=== PATIENT | female | born 1945 | race Caucasian/White ===

== ENCOUNTER → 2017-05-21 | Outpatient (CLI) | payer MEDICARE ==
--- NOTE | 2017-05-21 17:28 | US ---
EXAMINATION TYPE: US venous doppler duplex LE LT DATE OF EXAM: 05/21/2017 5:23 PM COMPARISON: NONE CLINICAL HISTORY: R60.6 Localized edema left lower extremity. Left ankle swelling x 5 days. SIDE PERFORMED: Left TECHNIQUE: The lower extremity deep venous system is examined utilizing real time linear array sonog agata with graded compression, doppler sonography and color-flow sonography. VESSELS IMAGED: External Iliac Vein (EIV) Common Femoral Vein Deep Femoral Vein Greater Saphenous Vein * Femoral Vein Popliteal Vein Small Saphenous Vein * Proximal Calf Veins (* superficial vessels) Left Leg: Negative for DVT IMPRESSION: Negative exam. No evidence of deep venous thrombosis in the left leg.
== END | disposition home or self-care (01) ==
LOC: RADUSMAIN 16:31
PROVIDERS: ATTEND Physical Medicine & Rehabilitation
DX: I80.9 Phlebitis and thrombophlebitis of unspecified site (principal); M51.17 Intervertebral disc disorders with radiculopathy, lumbosacral region; M47.817 Spondylosis without myelopathy or radiculopathy, lumbosacral region; M70.62 Trochanteric bursitis, left hip; M79.1 Myalgia; R60.0 Localized edema

== ENCOUNTER → 2018-04-15 | Outpatient (CLI) | payer MEDICARE ==
--- NOTE | 2018-04-18 14:25 | MM ---
Reason for exam: screening (asymptomatic). Last mammogram was performed 2 years and 5 months ago. History: Patient is postmenopausal. Family history of premenopausal breast cancer in sister at age 45. Benign stereotactic core biopsy of the left breast, July 08, 1999. Took hormonal contraceptives for 15 years beginning at age 20. Physical Findings: A clinical breast exam by your physician is recommended on an annual basis and results should be correlated with mammographic findings. MG 3D Screening Mammo W/Cad Bilateral CC and MLO view(s) were taken. Prior study comparison: November 11, 2015, right breast MG 3d work up w/cad RT. October 31, 2015, bilateral MG screening mammo w CAD. There are scattered fibroglandular densities. Finding: There are typically benign round calcifications in both breasts. Previous mammotome biopsy in the left breast. There is no discrete abnormality. ASSESSMENT: Benign, BI-RAD 2 RECOMMENDATION: Routine screening mammogram of both breasts in 1 year.
== END | disposition home or self-care (01) ==
LOC: RADMAMWWP 14:39
PROVIDERS: ATTEND Obstetrics & Gynecology
DX: Z12.31 Encounter for screening mammogram for malignant neoplasm of breast (principal); Z80.3 Family history of malignant neoplasm of breast
CPT/HCPCS: 77063; 77067

== ENCOUNTER → 2019-10-19 | Outpatient (CLI) | payer MEDICARE ==
--- NOTE | 2019-10-20 11:49 | ECHOF ---
Referral Reason:R01.1 Cardiac murmur on examination MEASUREMENTS -------- HEIGHT: 162.6 cm WEIGHT: 90.7 kg BP: IVSd: 1.1 cm (0.6 - 1.1) LVIDd: 4.1 cm (3.9 - 5.3) LVPWd: 1.3 cm (0.6 - 1.1) IVSs: 1.4 cm LVIDs: 2.9 cm LVPWs: 1.6 cm LAESV Index (A-L): 28.72 ml/m Ao Diam: 2.3 cm (2.0 - 3.7) AV Cusp: 1.5 cm (1.5 - 2.6) LA Diam: 3.9 cm (2.7 - 3.8) MV EXCURSION: 16.312 mm (> 18.000) MV EF SLOPE: 59 mm/s (70 - 150) EPSS: 0.2 cm MV E Rhett: 0.43 m/s MV DecT: 273 ms MV A Rhett: 0.66 m/s MV E/A Ratio: 0.66 RAP: 5.00 mmHg RVSP: 23.24 mmHg FINDINGS -------- Sinus rhythm. This was a technically good study. LV size, wall thickness and systolic function are normal, with an EF greater than 55%. The left prince tricular size is normal. The diastolic filling pattern is normal for the age of the patient 6.33. The right ventricle is normal in size. The left atrial size is normal. The right atrial size is normal. There is mild aortic valve sclerosis. There is no evidence of aortic regurgitation. Mild mitral annular calcification present. Mild mitral regurgitation is present. Mild tricuspid regurgitation present. Right ventricular systolic pressure is normal at < 35 mmHg. There is no evidence of pulmonary hypertension. There is no pulmonic regurgitation present. The aortic root size is normal. There is no pericardial effusion. CONCLUSIONS -------- 1. Sinus rhythm. 2. This was a technically good study. 3. LV size, wall thickness and systolic function are normal, with an EF greater than 55%. 4. The left ventricular size is normal. 5. The diastolic filling pattern is normal for the age of the patient 6.33 6. The right ventricle is normal in size. 7. The left atrial size is normal. 8. The right atrial size is normal. 9. There is mild aortic valve sclerosis. 10. Mild mitral annular calcification present. 11. Mild mitral regurgitation is present. 12. Mild tricuspid regurgitation present. 13. Right ventricular systolic pressure is normal at < 35 mmHg. 14. There is no evidence of pulmonary hypertension. 15. There is no pulmonic regurgitation present. 16. The aortic root size is normal. 17. There is no pericardial effusion. EXTERMINATOR HELPER TERMITE: Idania Mcdonald RDCS
== END | disposition home or self-care (01) ==
LOC: RADECHMAIN 12:51
PROVIDERS: ATTEND Family Medicine
DX: I08.3 Combined rheumatic disorders of mitral, aortic and tricuspid valves (principal)
CPT/HCPCS: 93306

== ENCOUNTER → 2019-12-22 | Outpatient (CLI) | payer MEDICARE ==
--- NOTE | 2019-12-25 13:20 | MM ---
Reason for exam: screening (asymptomatic). Last mammogram was performed 1 year and 8 months ago. History: Patient is postmenopausal. Family history of premenopausal breast cancer in sister at age 45. Benign stereotactic core biopsy of the left breast, July 08, 1999. Took hormonal contraceptives for 15 years beginning at age 20. Physical Findings: A clinical breast exam by your physician is recommended on an annual basis and results should be correlated with mammographic findings. MG 3D Screening Mammo W/Cad Bilateral CC and MLO view(s) were taken. Prior study comparison: April 15, 2018, bilateral MG 3d screening mammo w/cad. November 11, 2015, right breast MG 3d work up w/cad RT. There are scattered fibroglandular densities. There is no discrete abnormality. No significant changes when compared with prior studies. ASSESSMENT: Negative, BI-RAD 1 RECOMMENDATION: Routine screening mammogram of both breasts in 1 year.
== END | disposition home or self-care (01) ==
LOC: RADMAMWWP 14:38
PROVIDERS: ATTEND Obstetrics & Gynecology
DX: Z12.31 Encounter for screening mammogram for malignant neoplasm of breast (principal)
CPT/HCPCS: 77063; 77067

== ENCOUNTER 2021-09-16 10:11 | Outpatient (CLI) | payer MEDICARE ==
[~2021-09-16 10:11] MED LIST: BAMLANIVIMAB (EUA) 700 MG, ETESEVIMAB (EUA) 1,400 MG in SODIUM CHLORIDE 0.9% 50 ML IVPB ONE; SODIUM CHLORIDE 0.9% 50 ML IVPB ONE; SODIUM CHLORIDE 0.9% 500 ML 500 ML in EMPTY BAG 1 BAG IV PRN
[2021-09-16 10:47] VITALS: RESP 16
[2021-09-16 11:51] VITALS: BP 94/63; PULSE 96; TEMP 98.9
== END 2021-09-16 12:20 ==
LOC: PROCWHC3 10:11
PROVIDERS: ATTEND Family Medicine
DX: U07.1 COVID-19 (principal); Z87.891 Personal history of nicotine dependence; Z88.0 Allergy status to penicillin
CPT/HCPCS: 96360; J3490; M0243

== ENCOUNTER → 2021-12-25 | Outpatient (CLI) | payer MEDICARE ==
--- NOTE | 2021-12-25 10:52 | US ---
EXAMINATION TYPE: US kidneys/renal and bladder DATE OF EXAM: 12/25/2021 COMPARISON: NONE CLINICAL HISTORY: 76-year-old female Recurrent UTI N39.0. TECHNIQUE: Multiple sonographic images of the kidneys and bladder are obtained. FINDINGS: EXAM MEASUREMENTS: Right Kidney: 10.8 x 5.2 x 4.4 cm Left Kidney: 9.9 x 5.1 x 4.4 cm Right Kidney: Mild hydronephrosis Left Kidney: No hydronephrosis. Hypoechoic area seen lower pole 1.9 x 1.2 x 1.7 cm somewhat limited d ue to bowel gas. Bladder: Anechoic Bilateral Jets seen: no IMPRESSION: 1. Mild right-sided hydronephrosis. Correlate as to possible etiology. 2. A 1.9 cm round hypoechoic structure at the lower pole of the left kidney could represent a debris- filled cyst or solid mass. Either contrast enhanced CT to further characterize versus 3 month ultraso und follow-up to reassess.
== END | disposition home or self-care (01) ==
LOC: RADUSWWP 07:42
PROVIDERS: ATTEND Obstetrics & Gynecology
DX: N13.30 Unspecified hydronephrosis (principal); N28.89 Other specified disorders of kidney and ureter
CPT/HCPCS: 76770

== ENCOUNTER → 2022-01-02 | Outpatient (CLI) | payer MEDICARE ==
[2022-01-02 13:09] LABS: African American GFR (CKD) >90 (>60 ml/min/1.73 sqM); Blood Urea Nitrogen 23 mg/dL (7-17); Non-African American GFR(CKD) 83 (>60 ml/min/1.73 sqM)
--- NOTE | 2022-01-02 14:41 | CT ---
EXAMINATION TYPE: CT angio chest DATE OF EXAM: 01/02/2022 COMPARISON: HISTORY: Shortness of breath. CT DLP: 555.1 mGycm Automated exposure control for dose reduction was used. CONTRAST: CTA scan of the thorax is performed with IV Contrast, patient injected with 100ml mL of Isovue 370, p ulmonary embolism protocol. MIP images are created and reviewed. 3D reconstructed images are create d on an independent workstation and reviewed. FINDINGS: LUNGS: The lungs are grossly clear, there is no concerning parenchymal mass or nodule identified. M ild basilar atelectasis is noted. There is no pleural effusion or pneumothorax seen. The tracheobron chial tree is patent. AORTA: Mild atheromatous changes are present. No evident dissection or aneurysm. MEDIASTINUM: There is satisfactory enhancement of the pulmonary artery and its branches, there is no CT evidence for pulmonary embolism. There are no greater than 1 cm hilar or mediastinal lymph nodes. No pericardial effusion is seen. Right pulmonary artery is prominent OTHER: There is a lap band present. Prominence of the distal esophagus is present. Parapelvic cysts within the kidneys. . IMPRESSION: NO PULMONARY EMBOLISM. CORRELATE FOR POSSIBLE PULMONARY ARTERY HYPERTENSION. POSTOP CHANGES AND ADDIT IONAL FINDINGS DESCRIBED ABOVE.
== END | disposition home or self-care (01) ==
LOC: RADCTMAIN 12:15
PROVIDERS: ATTEND Internal Medicine
DX: J98.11 Atelectasis (principal); I70.0 Atherosclerosis of aorta; Z98.84 Bariatric surgery status; N94.89 Other specified conditions associated with female genital organs and menstrual cycle
CPT/HCPCS: 82565; 84520; 71275; 36415; Q9967

== ENCOUNTER → 2022-01-14 | Outpatient (CLI) | payer MEDICARE ==
[2022-01-14 12:53] LABS: African American GFR (CKD) >90 (>60 ml/min/1.73 sqM); Blood Urea Nitrogen 25 mg/dL (7-17); Non-African American GFR(CKD) 84 (>60 ml/min/1.73 sqM)
--- NOTE | 2022-01-14 14:01 | CT ---
EXAMINATION TYPE: CT abdomen wo/w con DATE OF EXAM: 01/14/2022 COMPARISON: CT 08/04/2012 HISTORY: renal mass, UTI CT DLP: 2474.4 mGycm Automated exposure control for dose reduction was used. TECHNIQUE: Helical acquisition of images was performed from the lung bases through the top of iliac crest to include entire abdomen. CONTRAST: Performed with Oral Contrast and without and with IV Contrast, patient injected with 100 mL of Isovue 300. FINDINGS: There is a lap band in place. Distal esophagus appears somewhat thickened similar to prior exam. LUNG BASES: No significant abnormality is appreciated. LIVER/GB: No significant abnormality is appreciated. PANCREAS: No significant abnormality is seen. SPLEEN: No significant abnormality is seen. ADRENALS: No significant abnormality is seen. KIDNEYS: Parapelvic cysts are again noted within the kidneys. No evident hydronephrosis or renal calc ulus. BOWEL: Diverticular changes are associated with the colon LYMPH NODES: No significant abnormality is appreciated. OSSEOUS STRUCTURES: Degenerative disc changes present in the lumbar spine, loss of disc height is ex tensive at L5-S1 with vacuum phenomenon. FREE AIR: No Free Air visible ASCITES: None visible. RETROPERITONEAL ADENOPATHY: No Retroperitoneal Adenopathy visible. OTHER: IMPRESSION: PARAPELVIC CYSTS WITHIN THE KIDNEYS, ADDITIONAL FINDINGS ABOVE.
== END | disposition home or self-care (01) ==
LOC: RADCTMAIN 11:40
PROVIDERS: ATTEND Obstetrics & Gynecology
DX: N28.1 Cyst of kidney, acquired (principal); M51.36 Other intervertebral disc degeneration, lumbar region; Z98.84 Bariatric surgery status; K57.30 Diverticulosis of large intestine without perforation or abscess without bleeding
CPT/HCPCS: 82565; 84520; 74170; 36415; Q9967

== ENCOUNTER 2022-04-14 14:55 | Emergency (ER) | payer MEDICARE ==
[2022-04-14 18:31] VITALS: PULSE 71; RESP 20; TEMP 98.2
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
[2022-04-14 19:30] LABS: Appearance,Urine Cloudy (Clear); Bacteria,Urine Rare /hpf; Bilirubin,Urine Negative (Negative); Blood,Urine Trace (Negative); Color,Urine Dark Brown; Glucose,Urine (UA) Negative (Negative); Hyaline Casts,Urine 5 /lpf (0-2); Ketones,Urine Negative (Negative); Leukocyte Esterase,Urine Trace (Negative); Mucus,Urine Occasional /hpf; Nitrite,Urine Positive (Negative); PH, Urine 5.5 (5.0-8.0); Protein,Urine Negative (Negative); RBC,Urine 17 /hpf (0-5); Specific Gravity,Urine 1.013 (1.001-1.035); Squamous Epithelial Cell,Urine 2 /hpf (0-4); WBC,Urine 23 /hpf (0-5)
[2022-04-14 19:59] VITALS: BP 179/89
== END 2022-04-14 19:58 | disposition home or self-care (01) ==
LOC: EC 14:55
DX: R10.31 Right lower quadrant pain (principal); N39.0 Urinary tract infection, site not specified; Z79.83 Long term (current) use of bisphosphonates; K21.9 Gastro-esophageal reflux disease without esophagitis; E78.5 Hyperlipidemia, unspecified; I10 Essential (primary) hypertension; Z87.891 Personal history of nicotine dependence; Z88.0 Allergy status to penicillin
CPT/HCPCS: 81001; 87086; 99283

== ENCOUNTER → 2022-04-14 | Outpatient (CLI) | payer MEDICARE ==
--- NOTE | 2022-04-14 13:22 | CT ---
EXAMINATION TYPE: CT abdomen pelvis wo con DATE OF EXAM: 04/14/2022 COMPARISON: CT dated 01/14/2022 HISTORY: Bilateral flank pain, lower abdominal pain. CT DLP: 1115.20 mGycm Automated exposure control for dose reduction was used. TECHNIQUE: Helical acquisition of images was performed from the lung bases through the pelvis. FINDINGS: LUNG BASES: Bilateral basal peripheral pulmonary reticulations and minimal fibrotic changes. LIVER/GB: No significant abnormality is appreciated. PANCREAS: Fatty infiltration of the pancreas. SPLEEN: No significant abnormality is seen. ADRENALS: No significant abnormality is seen. KIDNEYS: Suspected bilateral parapelvic renal cysts rather than dilated renal collecting system, appr eciated previously. No hydroureter bilaterally. FREE AIR: No free air is visualized RETROPERITONEAL ADENOPATHY: None visualized REPRODUCTIVE ORGANS: Small uterus with questionable deviation to the right side, suboptimally assesse d. No gross adnexal mass. Correlation with pelvic ultrasound can be considered. URINARY BLADDER: No significant abnormality is seen. PELVIC ADENOPATHY: No pathologically enlarged pelvic lymph nodes. OSSEOUS STRUCTURES: Degenerative changes of the lower lumbar spine and sacroiliac joints. No gross a ggressive lesion. BOWEL: Gastric band. There is interruption/break of the tube at the level of the anterior abdominal wall muscle which was not appreciated previously. The broken portion of the tube is apparently displa manuel inferiorly with the tip is seen in the right lower quadrant, please correlate clinically. No evid ence of gastric obstruction. Suspected small sliding hiatal hernia. Unremarkable duodenum and small b owel. Colonic diverticulosis, most evident involving the sigmoid colon and descending colon. OTHER: Arterial atherosclerotic calcifications. No sizable ascites. IMPRESSION: Interval interruption/breakage of the tube of the gastric band as detailed above, please correlate cl inically. No definite radiodense urinary calculi. Suspected bilateral parapelvic renal cysts, appreci ated previously. Other findings as detailed above. A [place] level critical message alert has been initiated for Jose Alfredo Ferris MD via the [employer] Critical Results System on 04/14/2022 1:19 PM. This message alert has been sent to Jose Alfredo Ferris MD via the preferences provided by the clinician for the receipt of Radiology Critical Findings. Message ID [id number].
[2022-04-14 14:48] LABS: ALT 24 U/L (4-34); AST 27 U/L (14-36); African American GFR (CKD) 88 (>60 ml/min/1.73 sqM); Albumin 4.1 g/dL (3.5-5.0); Albumin/Globulin Ratio 1.4; Alkaline Phosphatase 125 U/L (38-126); Anion Gap 8 mmol/L; Blood Urea Nitrogen 25 mg/dL (7-17); Carbon Dioxide 27 mmol/L (22-30); Chloride 101 mmol/L (98-107); Globulin 2.9 g/dL; Glucose 94 mg/dL (74-99); Non-African American GFR(CKD) 76 (>60 ml/min/1.73 sqM); Potassium 4.5 mmol/L (3.5-5.1); Sodium 136 mmol/L (137-145); Total Bilirubin 0.8 mg/dL (0.2-1.3)
[2022-04-14 18:23] LABS: Basophils # (A) 0.04 X 10*3/uL (0.00-0.10); Basophils % (A) 0.4 %; Eosinophils # (A) 0.31 X 10*3/uL (0.04-0.35); Eosinophils % (A) 3.3 %; HCT 39.9 % (37.2-46.3); HGB 12.7 g/dL (12.0-15.0); Immature Grans, Automated 0.3 %; Lymphocytes # (A) 1.18 X 10*3/uL (0.90-5.00); Lymphocytes % (A) 12.6 %; MCH 29.1 pg (27.0-32.0); MCHC 31.8 g/dL (32.0-37.0); MCV 91.3 fL (80.0-97.0); Mean Platelet Volume 10.2 fL (9.5-12.2); Monocytes # (A) 0.87 X 10*3/uL (0.20-1.00); Monocytes % (A) 9.3 %; NRBC Per 100 WBC 0 /100 WBCS (0.0-0.0); Neutrophils % (A) 74.1 %; Platelet Count 214 X 10*3/uL (140-440); RBC 4.37 X 10*6/uL (4.10-5.20); RDW 14.6 % (11.5-14.5); WBC 9.33 X 10*3/uL (4.50-10.00)
== END | disposition home or self-care (01) ==
LOC: RADCTMAIN 12:28
PROVIDERS: ATTEND Family Medicine
DX: R10.30 Lower abdominal pain, unspecified (principal)
CPT/HCPCS: 74176; 80053; 85025

== ENCOUNTER → 2022-04-15 | Outpatient (CLI) | payer MEDICARE ==
[2022-04-15 09:04] VITALS: BP 138/86; PULSE 82; TEMP 98.2; BMI 39.9
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
== END ==
LOC: BARWHC3 08:36
PROVIDERS: ATTEND Surgery
DX: K95.09 Other complications of gastric band procedure (principal); Z87.891 Personal history of nicotine dependence; E78.5 Hyperlipidemia, unspecified; I10 Essential (primary) hypertension; M19.90 Unspecified osteoarthritis, unspecified site; Z88.0 Allergy status to penicillin
CPT/HCPCS: 99211

== ENCOUNTER → 2022-04-15 | Outpatient (CLI) | payer MEDICARE | END | disposition home or self-care (01) | LOC: LABPAT 08:58 | PROVIDERS: ATTEND Surgery | DX: Z01.818 Encounter for other preprocedural examination (principal) | CPT/HCPCS: 93005 ==

== ENCOUNTER 2022-04-20 07:18 | Day surgery (SDC) | payer MEDICARE ==
[~2022-04-20 07:18] MED LIST changes: -BAMLANIVIMAB (EUA) 700 MG, ETESEVIMAB (EUA) 1,400 MG in SODIUM CHLORIDE 0.9% 50 ML IVPB ONE; +DEXAMETHASONE SOD PHOSPHATE 4 MG/ML 1 ML VIAL IV ONE; +LACTATED RINGERS 1,000 ML IV SCH; +MIDAZOLAM 2 MG/2 ML VIAL IV PRN; +ONDANSETRON 4 MG/2 ML VIAL IVP ONE; -SODIUM CHLORIDE 0.9% 50 ML IVPB ONE; -SODIUM CHLORIDE 0.9% 500 ML 500 ML in EMPTY BAG 1 BAG IV PRN
[2022-04-20] MEDS ORDERED: HEPARIN SODIUM,PORCINE 5,000 UNIT/ML 1 ML VIAL SQ ONE (07:47)
[2022-04-20] MEDS ORDERED: HEPARIN SODIUM,PORCINE/PF 5,000 UNIT/0.5 ML SYRINGE SQ ONE (07:48)
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
[2022-04-20] MEDS ORDERED: ROCURONIUM 10 MG/ML (5 ML VIAL) IV ONE (07:57)
[2022-04-20] MEDS ORDERED: LIDOCAINE 2% INJ 20 MG/ML (2 ML VIAL) ONE (07:57)
[2022-04-20] MEDS ORDERED: MIDAZOLAM 2 MG/2 ML VIAL ONE (07:57)
[2022-04-20] MEDS ORDERED: NEOSTIGMINE 1 MG/ML 10 ML VIAL ONE (07:57)
[2022-04-20] MEDS ORDERED: fentaNYL (PF) 50 MCG/ML 2 ML AMP ONE (07:57)
[2022-04-20] MEDS ORDERED: GLYCOPYRROLATE 0.2 MG/ML 2 ML VIAL ONE (07:57)
[2022-04-20] MEDS ORDERED: PROPOFOL 10 MG/ML 20 ML VIAL IV ONE (07:57)
[2022-04-20] MEDS ORDERED: SUCCINYLCHOLINE CHLORIDE 100 MG/5 ML SYR IV ONE (07:57)
[2022-04-20] MEDS ORDERED: PHENYLEPHRINE-0.9% NACL SYG 1,000 MCG/10 ML SYRINGE ONE (07:57)
[2022-04-20] MEDS ORDERED: BUPIVACAIN-EPI 0.25%-1:200,000 30 ML VIAL SQ ONE (08:31)
--- NOTE | 2022-04-20 09:06 | P.OP ---
Date of Procedure: 04/20/22 Preoperative Diagnosis: LAP-BAND port malfunction Postoperative Diagnosis: LAP-BAND port malfunction Procedure(s) Performed: Laparoscopic removal and replacement of LAP-BAND port Anesthesia: ESTEFANIA Surgeon: Gee Apodaca Estimated Blood Loss (ml): 5 Pathology: none sent Condition: stable Disposition: PACU Description of Procedure: The patient's placed on the operative table in the supine position. She received IV sedation. She then received general endotracheal tube anesthesia. Her abdomen was prepped and draped usual sterile fashion. The skin was anesthetized 1% local Xylocaine. At the port site. The skin was incised and using left cautery and sharp and blunt dissection the LAP-BAND port was dissected free. The PEG tube had been broken off the port. This point using a Veress needle the pleural cavity insufflated. After adequate insufflation a 5 mm trochars placed at the port site. Next a 10 mm trocar was placed in the right epigastric area. The PEG tube was visualized. The PEG tube was then brought up through the 10 mm trocar site. The PEG tube was then withdrawn. The trochars withdrawn. The new LAP-BAND port sent to the PEG tube and secured to the fascia using 0 nylon suture. The LAP-BAND port was flushed with saline and then 1.5 mL of saline was placed in the port. The skin incision sites are closed with 3-0 Monocryl suture. Dermabond dressings was applied. Patient top she will was sent to recovery room in stable condition.
[2022-04-20 09:09] VITALS: TEMP 96.8
[2022-04-20] MEDS: HYDROmorphone 0.5 MG/0.5 ML SYRINGE IVP PRN ×3 (09:20→10:38)
[2022-04-20] MEDS ORDERED: oxyCODONE-APAP 5-325MG 1 EACH TAB ONE (11:02)
[2022-04-20] MEDS ORDERED: LACTATED RINGERS 1,000 ML IV ONE (12:00)
[2022-04-20 15:03] VITALS: RESP 17
[2022-04-20 15:27] VITALS: BP 153/86; PULSE 66
== END 2022-04-20 15:40 | disposition home or self-care (01) ==
LOC: OR 07:18
PROVIDERS: ATTEND Surgery
DX: K95.09 Other complications of gastric band procedure (principal)
CPT/HCPCS: 43773; C1751; J2250; J1644; J1100; J2710; J0690; J2405; J3010; J2370; J0330; J2704; J1170; J2001

== ENCOUNTER → 2022-04-27 | Outpatient (CLI) | payer MEDICARE ==
[2022-04-27 13:21] VITALS: BP 158/90; PULSE 75; TEMP 98.3; BMI 39.3
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
== END ==
LOC: BARWHC3 12:53
PROVIDERS: ATTEND Surgery
DX: E66.01 Morbid (severe) obesity due to excess calories (principal); Z68.39 Body mass index [BMI] 39.0-39.9, adult; J44.9 Chronic obstructive pulmonary disease, unspecified; E78.5 Hyperlipidemia, unspecified; I10 Essential (primary) hypertension; M19.90 Unspecified osteoarthritis, unspecified site; Z98.84 Bariatric surgery status; Z87.891 Personal history of nicotine dependence; Z88.0 Allergy status to penicillin
CPT/HCPCS: 99211

== ENCOUNTER → 2022-06-01 | Outpatient (CLI) | payer MEDICARE ==
[2022-06-01 13:11] VITALS: BP 131/62; PULSE 80; TEMP 98.2; BMI 37.0
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
== END ==
LOC: BARWHC3 12:58
PROVIDERS: ATTEND Surgery
DX: E66.01 Morbid (severe) obesity due to excess calories (principal); Z98.84 Bariatric surgery status; K21.9 Gastro-esophageal reflux disease without esophagitis; E78.5 Hyperlipidemia, unspecified; I10 Essential (primary) hypertension; J44.9 Chronic obstructive pulmonary disease, unspecified; M19.071 Primary osteoarthritis, right ankle and foot; M19.072 Primary osteoarthritis, left ankle and foot; M16.0 Bilateral primary osteoarthritis of hip; Z87.891 Personal history of nicotine dependence; Z68.37 Body mass index [BMI] 37.0-37.9, adult; Z88.0 Allergy status to penicillin
CPT/HCPCS: 99211

== ENCOUNTER → 2022-08-10 | Outpatient (CLI) | payer MEDICARE ==
[2022-08-10 13:16] VITALS: BP 133/73; PULSE 73; TEMP 98.6; BMI 35.0
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
== END ==
LOC: BARWHC3 12:47
PROVIDERS: ATTEND Surgery
DX: E66.01 Morbid (severe) obesity due to excess calories (principal); J44.9 Chronic obstructive pulmonary disease, unspecified; K21.9 Gastro-esophageal reflux disease without esophagitis; I10 Essential (primary) hypertension; E78.5 Hyperlipidemia, unspecified; M17.9 Osteoarthritis of knee, unspecified; M19.072 Primary osteoarthritis, left ankle and foot; M19.071 Primary osteoarthritis, right ankle and foot; M16.0 Bilateral primary osteoarthritis of hip; Z87.891 Personal history of nicotine dependence; Z68.35 Body mass index [BMI] 35.0-35.9, adult
CPT/HCPCS: 99211

== ENCOUNTER → 2023-02-15 | Outpatient (CLI) | payer MEDICARE ==
[2023-02-15 13:13] VITALS: BP 155/78; PULSE 71; TEMP 97.7; BMI 34.7
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
== END ==
LOC: BARWHC3 12:57
PROVIDERS: ATTEND Surgery
DX: E66.01 Morbid (severe) obesity due to excess calories (principal); Z46.51 Encounter for fitting and adjustment of gastric lap band; J44.9 Chronic obstructive pulmonary disease, unspecified; K21.9 Gastro-esophageal reflux disease without esophagitis; E78.5 Hyperlipidemia, unspecified; I10 Essential (primary) hypertension; M19.90 Unspecified osteoarthritis, unspecified site; Z87.891 Personal history of nicotine dependence; Z68.34 Body mass index [BMI] 34.0-34.9, adult; Z88.0 Allergy status to penicillin
CPT/HCPCS: 99212

== ENCOUNTER → 2023-03-03 | Outpatient (CLI) | payer MEDICARE ==
[2023-03-03 20:05] LABS: Basophils # (A) 0.07 X 10*3/uL (0.00-0.10); Basophils % (A) 0.6 %; Eosinophils # (A) 0.27 X 10*3/uL (0.04-0.35); Eosinophils % (A) 2.5 %; HCT 38.5 % (37.2-46.3); HGB 12.3 g/dL (12.0-15.0); Immature Grans, Automated 0.5 %; Lymphocytes # (A) 1.36 X 10*3/uL (0.90-5.00); Lymphocytes % (A) 12.4 %; MCH 29.8 pg (27.0-32.0); MCHC 31.9 g/dL (32.0-37.0); MCV 93.2 fL (80.0-97.0); Mean Platelet Volume 10.4 fL (9.5-12.2); Monocytes # (A) 0.99 X 10*3/uL (0.20-1.00); NRBC Per 100 WBC 0 /100 WBCS (0.0-0.0); Neutrophils # (A) 8.25 X 10*3/uL (1.80-7.70); Platelet Count 276 X 10*3/uL (140-440); RBC 4.13 X 10*6/uL (4.10-5.20); RDW 14.4 % (11.5-14.5)
[2023-03-04 03:00] LABS: African American GFR (CKD) 92.8 (60.0-200.0); Albumin 3.9 g/dL (3.8-4.9); Albumin/Globulin Ratio 1.69 (1.60-3.17); Anion Gap 12.1 mmol/L (10.00-18.00); BUN/Creat Ratio 33.01 Ratio (12.00-20.00); Blood Urea Nitrogen 23.8 mg/dL (9.0-27.0); Calcium 9.7 mg/dL (8.7-10.3); Carbon Dioxide 28.3 mmol/L (20.0-27.5); Globulin 2.3 g/dL (1.6-3.3); Non-African American GFR(CKD) 80.1 (60.0-200.0); Potassium 4.3 mmol/L (3.5-5.5); Total Bilirubin 0.5 mg/dL (0.30-1.20); Total Protein 6.3 g/dL (6.2-8.2)
== END | disposition home or self-care (01) ==
LOC: LABPAT 14:26
PROVIDERS: ATTEND Surgery
DX: Z01.812 Encounter for preprocedural laboratory examination (principal)
CPT/HCPCS: 80053; 85025; 93005

== ENCOUNTER 2023-03-09 09:41 | Emergency (ER) | payer MEDICARE ==
[2023-03-09 09:46] VITALS: BP 168/98; PULSE 77; RESP 24; TEMP 98
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
[2023-03-09 11:32] LABS: Appearance,Urine Clear (Clear); Bilirubin,Urine Negative (Negative); Blood,Urine Trace (Negative); Color,Urine Colorless; Glucose,Urine (UA) Negative (Negative); Ketones,Urine Negative (Negative); Leukocyte Esterase,Urine Negative (Negative); Mucus,Urine Rare /hpf; Nitrite,Urine Negative (Negative); Protein,Urine Negative (Negative); RBC,Urine 3 /hpf (0-5); Specific Gravity,Urine 1.005 (1.001-1.035); Squamous Epithelial Cell,Urine <1 /hpf (0-4); Urobilinogen,Urine <2.0 mg/dL (<2.0); WBC,Urine 1 /hpf (0-5)
== END 2023-03-09 11:00 | disposition home or self-care (01) ==
LOC: EC 09:41
DX: R33.9 Retention of urine, unspecified (principal); I10 Essential (primary) hypertension; J44.9 Chronic obstructive pulmonary disease, unspecified; E78.5 Hyperlipidemia, unspecified; K21.9 Gastro-esophageal reflux disease without esophagitis; Z79.82 Long term (current) use of aspirin; Z79.899 Other long term (current) drug therapy; Z87.891 Personal history of nicotine dependence; Z88.0 Allergy status to penicillin; Z98.84 Bariatric surgery status
CPT/HCPCS: 51702; 51798; 81001; 99284

== ENCOUNTER → 2023-03-15 | Outpatient (CLI) | payer MEDICARE ==
[2023-03-15 15:35] VITALS: BP 171/74; PULSE 79; TEMP 97.8; BMI 35.0
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
== END ==
LOC: BARWHC3 13:45
PROVIDERS: ATTEND Surgery
DX: E66.01 Morbid (severe) obesity due to excess calories (principal); K21.9 Gastro-esophageal reflux disease without esophagitis; Z87.891 Personal history of nicotine dependence; J44.9 Chronic obstructive pulmonary disease, unspecified; E78.5 Hyperlipidemia, unspecified; I10 Essential (primary) hypertension; M51.36 Other intervertebral disc degeneration, lumbar region; M19.071 Primary osteoarthritis, right ankle and foot; M19.072 Primary osteoarthritis, left ankle and foot; M16.0 Bilateral primary osteoarthritis of hip; Z88.0 Allergy status to penicillin
CPT/HCPCS: 99211

== ENCOUNTER → 2023-03-22 | Outpatient (CLI) | payer MEDICARE ==
[2023-03-22 13:24] VITALS: BP 138/82; PULSE 81; TEMP 98.1; BMI 34.8
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
== END ==
LOC: BARWHC3 13:05
PROVIDERS: ATTEND Surgery
DX: E66.01 Morbid (severe) obesity due to excess calories (principal); Z68.34 Body mass index [BMI] 34.0-34.9, adult; Z46.51 Encounter for fitting and adjustment of gastric lap band; K21.9 Gastro-esophageal reflux disease without esophagitis; E78.5 Hyperlipidemia, unspecified; I10 Essential (primary) hypertension; M19.90 Unspecified osteoarthritis, unspecified site; M16.0 Bilateral primary osteoarthritis of hip; M51.36 Other intervertebral disc degeneration, lumbar region; Z87.891 Personal history of nicotine dependence; Z88.0 Allergy status to penicillin
CPT/HCPCS: 99211

== ENCOUNTER → 2023-03-26 | Outpatient (CLI) | payer MEDICARE ==
[2023-03-26 10:45] LABS: Partial Thromboplastin Time 25.6 sec (22.0-30.0); Prothrombin Time 10.2 sec (9.0-12.0)
[2023-03-26 15:20] LABS: HCT 41.8 % (37.2-46.3); HGB 13.3 g/dL (12.0-15.0); MCH 29.4 pg (27.0-32.0); MCHC 31.8 g/dL (32.0-37.0); MCV 92.3 fL (80.0-97.0); Mean Platelet Volume 10.1 fL (9.5-12.2); NRBC Per 100 WBC 0 /100 WBCS (0.0-0.0); Platelet Count 261 X 10*3/uL (140-440); RBC 4.53 X 10*6/uL (4.10-5.20); RDW 14.3 % (11.5-14.5)
[2023-03-26 16:19] LABS: African American GFR (CKD) 96.2 (60.0-200.0); Albumin 4.1 g/dL (3.8-4.9); Albumin/Globulin Ratio 1.52 (1.60-3.17); BUN/Creat Ratio 28.43 Ratio (12.00-20.00); Blood Urea Nitrogen 19.9 mg/dL (9.0-27.0); Calcium 9.5 mg/dL (8.7-10.3); Globulin 2.7 g/dL (1.6-3.3); Potassium 4.2 mmol/L (3.5-5.5); Total Bilirubin 0.7 mg/dL (0.30-1.20); Total Protein 6.8 g/dL (6.2-8.2)
[2023-03-27 03:52] LABS: Appearance,Urine Clear (Clear); Bilirubin,Urine Negative (Negative); Blood,Urine Trace (Negative); Color,Urine Yellow (Yellow); Ketones,Urine Negative (Negative); Nitrite,Urine Negative (Negative); PH, Urine 7.5 (5.0-8.0); Specific Gravity,Urine 1.014 (1.001-1.030); Urobilinogen,Urine 0.2 (0.2,1.0)
[2023-03-27 04:03] LABS: Bacteria,Urine 2+ /HPF (None Seen)
== END | disposition home or self-care (01) ==
LOC: LABPAT 09:08
PROVIDERS: ATTEND Orthopaedic Surgery Sports Medicine
DX: Z01.818 Encounter for other preprocedural examination (principal); I49.1 Atrial premature depolarization; M17.11 Unilateral primary osteoarthritis, right knee
CPT/HCPCS: 80053; 81001; 85027; 85610; 85730; 87070; 93005

== ENCOUNTER 2023-04-08 05:33 | Observation (INO) | payer MEDICARE ==
[~2023-04-08 05:33] MED LIST changes: +ACETAMINOPHEN TAB 500 MG TAB PO PRN; -DEXAMETHASONE SOD PHOSPHATE 4 MG/ML 1 ML VIAL IV ONE; +GABAPENTIN 300 MG CAP PO PRN; -LACTATED RINGERS 1,000 ML IV SCH; +MELOXICAM 7.5 MG TAB PO PRN; -MIDAZOLAM 2 MG/2 ML VIAL IV PRN; -ONDANSETRON 4 MG/2 ML VIAL IVP ONE; +ONDANSETRON 4 MG/2 ML VIAL IVP PRN; +TRANEXAMIC 1,000 MG/100ML-NACL 1,000 MG in SALINE 1 100ML.BAG IVPB PRN
[2023-04-08] MEDS ORDERED: DEXAMETHASONE SOD PHOSPHATE 4 MG/ML 1 ML VIAL IV ONE (05:54)
[2023-04-08] MEDS ORDERED: droPERidol 5 MG/2 ML VIAL IVP ONE (05:54)
[2023-04-08] MEDS ORDERED: ONDANSETRON 4 MG/2 ML VIAL IVP ONE (05:54)
[2023-04-08] MEDS ORDERED: LACTATED RINGERS 1,000 ML IV SCH (05:54)
[2023-04-08] MEDS ORDERED: LIDOCAINE 1% (10MG/ML) FOR IV START INTRADERMA PRN (05:54)
[2023-04-08] MEDS ORDERED: MIDAZOLAM 2 MG/2 ML VIAL IVP ONE (06:42)
[2023-04-08] MEDS ORDERED: fentaNYL (PF) 50 MCG/ML 2 ML AMP IVP ONE (06:42)
[2023-04-08] MEDS ORDERED: MIDAZOLAM 2 MG/2 ML VIAL ONE (07:04)
[2023-04-08] MEDS ORDERED: TRANEXAMIC 1,000 MG/100ML-NACL PREMIX BAG ONE (07:04)
[2023-04-08] MEDS ORDERED: PHENYLEPHRINE-0.9% NACL SYG 1,000 MCG/10 ML SYRINGE ONE (07:04)
[2023-04-08] MEDS ORDERED: PROPOFOL 10 MG/ML 20 ML VIAL IV ONE (07:04)
[2023-04-08] MEDS ORDERED: fentaNYL (PF) 50 MCG/ML 2 ML AMP ONE (07:04)
[2023-04-08] MEDS ORDERED: ROPIVACAINE 5 MG/ML 30 ML VIAL ONE (07:04)
[2023-04-08] MEDS ORDERED: SODIUM CHLORIDE 0.9% (PF) 10 ML VIAL ONE (07:04)
[2023-04-08] MEDS ORDERED: ceFAZolin 3,000 MG in SODIUM CHLORIDE 0.9% IRRIGATIO 3,000 ML IRRIGATION ONE (07:45)
--- NOTE | 2023-04-08 09:08 | P.ANPRN ---
Procedure Note - Anesthesia - Nerve Block Performed Right Adductor Canal Infusion Time Out Performed: Yes (0641) Date of Procedure: 04/08/23 Procedure Start Time: 06:42 Procedure Stop Time: 06:47 Location of Patient: PreOp Indication: Acute Post-Operative Pain, Requested by Surgeon Specifically requested for management of pain by DrBrenna: Milton Alonso Sedation Type: Sedate with meaningful contact maintained Preparation: Sterile Prep, Sterile Dressing Position: Supine Catheter Depth at Skin (cm): 7 Catheter: Indwelling Needle Types: Pajunk Needle Gauge: 18 Ultrasound used to visualize needle placement: Yes Ultrasound used to observe medication spread: Yes Injectate: 0.5% Ropivacaine (see comment for volume) (15CC + 5CC NACL PF) Blood Aspirated: No Pain Paresthesia on Injection Noted: No Resistance on Injection: Normal Image Stored and Saved: Yes Events: Uneventful and Well Tolerated
--- NOTE | 2023-04-08 09:09 | P.ANPRN ---
Procedure Note - Anesthesia - Nerve Block Performed Right iPack Single Time Out Performed: Yes (0641) Date of Procedure: 04/08/23 Procedure Start Time: 06:48 Procedure Stop Time: 06:51 Location of Patient: PreOp Indication: Acute Post-Operative Pain, Requested by Surgeon Specifically requested for management of pain by DrBrenna: Mliton Alonso Sedation Type: Sedate with meaningful contact maintained Preparation: Sterile Prep Position: Supine Catheter: None Needle Types: Pajunk Needle Gauge: 21 Ultrasound used to visualize needle placement: Yes Ultrasound used to observe medication spread: Yes Injectate: 0.5% Ropivacaine (see comment for volume) (15CC + 5CC NACL PF) Blood Aspirated: No Pain Paresthesia on Injection Noted: No Resistance on Injection: Normal Image Stored and Saved: Yes Events: Uneventful and Well Tolerated
[2023-04-08] MEDS ORDERED: traMADol 50 MG TAB PO PRN (09:26)
[2023-04-08] MEDS ORDERED: MAGNESIUM HYDROXIDE 2,400 MG/10 ML CUP PO PRN (09:26)
[2023-04-08] MEDS ORDERED: NALOXONE 0.4 MG/ML 1 ML VIAL IV PRN (09:26)
[2023-04-08] MEDS ORDERED: bisacodyL 10 MG SUPP RECTAL PRN (09:26)
[2023-04-08] MEDS ORDERED: HYDROmorphone 0.5 MG/0.5 ML SYRINGE IVP PRN ×2 (09:26)
[2023-04-08] MEDS ORDERED: ACETAMINOPHEN TAB 325 MG TAB PO PRN (09:26)
[2023-04-08] MEDS ORDERED: NA PHOS,M-B/NA PHOS,DI-BA 133 ML ENEMA RECTAL PRN (09:26)
[2023-04-08] MEDS ORDERED: ROPIVACAINE 1,100 MG, SODIUM CHLORIDE 0.9% 500 ML 330 ML, EMPTY PAIN BALL 1 EACH MISCELLANE PRN ×2 (09:31)
[2023-04-08] MEDS ORDERED: HYDROcodone/APAP 7.5-325MG 1 EACH TAB PO PRN (09:35)
[2023-04-08] MEDS: HYDROmorphone 0.5 MG/0.5 ML SYRINGE IVP PRN ×3 (09:47→12:52)
--- NOTE | 2023-04-08 09:53 | OP ---
OPERATIVE REPORT DATE OF SERVICE : 04/08/2023 ASSEMBLY MACHINE OFFBEARER: Maldonado Novoa PA-C PREOPERATIVE DIAGNOSIS: Right knee osteoarthrosis. POSTOPERATIVE DIAGNOSIS: Right knee osteoarthrosis. PROCEDURES PERFORMED: Right total knee arthroplasty. ANESTHESIA: Spinal with sedation. ESTIMATED BLOOD LOSS: 100 mL. TOURNIQUET TIME: 58 minutes at 250 mmHg. COMPLICATIONS: None apparent. DRAINS: None. DISPOSITION: Postanesthesia care unit. INDICATIONS FOR PROCEDURE: Nicci is a very pleasant 77-year-old female with longstanding history of right knee pain. History and physical examination are consistent with advanced right knee osteoarthrosis. She has been through significant operative management up to this point. Further treatment options were discussed, and she has decided to go forward with the right total knee arthroplasty. The risks of procedure were discussed with her in detail. These risks included but are not limited to risk of infection, nerve damage, bleeding, pain, and a small risk of deep vein thrombosis which could lead to fatal pulmonary embolism. There is also risk of loosening of the implant which could require revision operation. The patient understands these risks. All of her questions were answered to her satisfaction. An appropriate informed consent was obtained. DESCRIPTION OF PROCEDURE: The patient was identified in the preoperative holding area. Surgical site was marked by both the patient and myself. She was given 2 g of Ancef IV for prophylactic purposes. She was then transported to the operative suite. She was placed supine on the operating room table. Spinal anesthetic was then administered, dosed per the Anesthesia without apparent complication. An examination under anesthesia performed. The patient was 2 to 3 degrees shy of full extension. She had 100 degrees of flexion. Medial collateral ligament, lateral collateral ligament and posterior cruciate ligaments were stable. The tourniquet was then placed high on the right upper thigh well-padded in preparation for surgery. The patient's right lower extremity was then prepped and draped in usual sterile fashion. Standard surgical pause was undertaken to ensure that we were operating the correct site and that appropriate preoperative antibiotics had been given. All staff in the room were in agreement, and we proceeded. The outlines of the patella were then marked with a surgical pen. A planned 12 cm vertical incision centered over the patella was marked with a surgical pen. Upper leg was then exsanguinated with an Esmarch dressing. The knee was then flexed, and the tourniquet was inflated to 250 mmHg. The total tourniquet time for the procedure was 58 minutes. Incision was then made with a 10-blade scalpel. Dissection was carried down sharply overlying fascia. Great care was taken to minimize the skin flaps. The knee was then exposed using a standard medial parapatellar approach. A small cuff of quadriceps tendon was then left for suturing. She was in a bit of valgus preoperatively. A very minimal medial release was made. This was just done to place the medial retractors. Medial meniscus was then excised as well. The lateral meniscus was also released anteriorly. The leg was then externally rotated. The patella was everted. The knee was flexed. Retractors were then placed to protect the collateral ligaments. I then proceeded to remove the infrapatellar fat pad. This was excised sharply tangentially with fibers of the patellar tendon. I then proceeded to remove the peripheral osteophytes. This was done with a rongeur. I then proceeded with the distal resection. She did have near full extension. A planned 9 mm resection was then done. The femoral canal was then entered in midline of the femur. Approximately, 10 mm anterior to the origin of the posterior cruciate ligament. The val was then advanced down the center of the femur and placed intramedullary. Based on the preoperative radiographs, the angle between the anatomic and mechanical axis of the femur was approximately 4 to 5 degrees. The valgus angle of the distal femoral cutting guide was then set at 4 degrees for the right knee. The distal femoral cutting guide was then advanced over the intramedullary val. This was seated firmly against the femur. I then as mentioned, planned to take 9 mm off the distal femur. The cutting block was then secured onto the femur with pins. The jig was then removed. The distal femoral cut was made through the slot of the block. The pins were removed. The distal femoral cutting block was removed. The accuracy of the distal femoral cuts was checked with 2 flat bars. I then proceeded with femoral sizing. Posterior referencing sizing guide was held firmly against the resected distal surface of the femur. The posterior condyles were resting on the posterior plane of the guide. The sizing stylus was then placed on the anterior femur. The size was measured as a size 7. I then assessed for femoral rotation. Planned for 3 degrees of external rotation. A 3 degrees of external rotation was placed onto the jig. These holes were then marked and then confirmed with the rotation by 3 separate methods. This was done using epicondylar axis as well as Whitesides line and posterior referencing. It was deemed that the external rotation was proper. I therefore placed the femoral cutting block. This was placed over the previously placed pin holes. The Aidan wing was then placed on the anterior slots to ensure that we would not notch the anterior femur with the anterior femoral cut. I then proceeded with the anterior femoral cut. This was flushed with the anterior cortex of the femur. The posterior cuts were then made followed by the anterior chamfer cut, then the posterior chamfer cut. The cutting block was then removed. Throughout the resection, the collateral ligaments were protected with retractors. I then placed a trial size 7 femur. It was slightly wide but the narrow fit very nicely, and it fit flush with the distal end of the femur. The drill hole was then made. I then proceeded with the tibial cut. We planned for cruciate-retaining knee. The guide was placed and set for varus, valgus and for slope. The height was set for approximately 2 mm resection from the lateral medial tibial plateau which was the lower side. I was happy with alignment and the amount of resection. The cutting block was then pinned to the proximal tibia. The alignment val was removed and the proximal tibia was resected with a reciprocating saw. Again, this was done with retractors protecting the collateral ligaments as well as the posterior cruciate ligament. I then proceeded to evaluate the flexion extension gaps. A 10 mm block was then placed. The flexion extension gaps were equal. I then proceeded with resection of posterior osteophytes. She had very minimal posterior osteophytes. This was done using a curved osteotome. This resected the posterior osteophytes, and posterior capsular stripping was done off the posterior aspect of the femur at this time. The osteophytes were then removed. I then proceeded with resection of the patella. The thickness of patella was measured using the caliper. The thickness was 22 mm. The thickness of the anticipated patellar dome was taken into account. Resection was then performed and confirmed to be equal in 4 quadrants using a caliper. Approximately 14 mm of bone remained after resection. A 29 x 8 mm standard patellar trial was then placed. The holes drilled. The trial was then placed. I then proceeded with sizing the tibial plate. A size C tibial plate fit very nicely. I then placed the trial femur, the tibial tray, and the patellar button. A 10 mm trial tibial insert was also placed. The components fit very nicely. She had full extension and flexion. The extension and flexion gaps were equal and stable to both varus and valgus stress. The patella tracked appropriately. The tibial tray rotation was then marked with a Bovie. This was externally rotated properly. I then proceeded with tibial preparation. I first drilled the femoral holes and removed the femoral component. The tibial tray was then set for proper external rotation as well as medial and lateral placement onto the tibia. It was then pinned into place. I then proceeded with punching the keel. I then decided to proceed with cementing of all our components. The knee was thoroughly irrigated with sterile saline solution via pulse lavage. The lateral genicular artery was identified and cauterized. All blood was removed from the bone of the tibia, femur, and patella with pulsed lavage. I then proceeded with cementing. Two packs of antibiotic bone cement prepared on the back table by the chemical lab technician. I then proceeded with cementing the tibia first. The cement was impacted into the keel as well as deeply seated into the bone. A second coat of cement was then placed. The tibia was then impacted into place. Excess cement was removed with Old Glory's and Joker's. I then proceeded with cementing of the femoral component. The femoral component was also cemented using standard technique. Excess cement was removed. A 10 mm trial insert was then placed in the knee. It was brought into full extension with a constant axial load placed until the cement had hardened. The patellar component was also cemented. This was held firmly with a compressive device until the cement had dried. When the cement had dried, the knee was taken out of extension. All excess cement was removed from around the prosthesis. I then trialed the knee with a 10 mm insert. Flexion and extension gaps were appropriate. The knee was stable. It came into full extension. I decided to go forward with a 10 mm Medial Congruent cross-linked cruciate- retaining tibial insert. Polyethylene was then placed onto the tibial tray and locked into place. The knee was then reduced. The knee was again further irrigated with sterile saline solution with antibiotic added. The tourniquet was then deflated. Total tourniquet time for the procedure was 58 minutes at 250 mmHg. Final components were Xiomy Persona size 7 narrow cruciate-retaining femoral component, size E tibial tray, a 10 mm Medial Congruent cruciate-retaining polyethylene insert, and a 29 x 8 mm patella. I then proceeded with closure. Again, the knee was thoroughly irrigated. The quadriceps tendon and medial retinaculum were reapproximated with #2 Ethibond suture. The extensor mechanism was then closed with a running #2 Quill suture. Subcutaneous tissues were closed with 2-0 Vicryl interrupted suture. The skin was closed with a running 3-0 Quill suture. Dermabond was applied to the incision. Sterile compressive dressing was then applied. All sponge and needle counts were deemed correct prior to closure. The patient tolerated the procedure without apparent complication. She was transferred to the recovery room in stable condition. [id number] / IJN: [id number] /
--- NOTE | 2023-04-08 10:45 | XR ---
EXAMINATION TYPE: XR knee limited RT DATE OF EXAM: 04/08/2023 COMPARISON: NONE HISTORY: 77-year-old female evaluation for postoperative abnormality and alignment TECHNIQUE: 2 views FINDINGS: Images show placement of right total knee arthroplasty. Both distal femoral and proximal ti bial components of the prosthesis are well seated without periprosthetic fracture. Alignment grossly anatomic. Anterior soft tissue swelling along with soft tissue air and intra-articular air related to recent operation. IMPRESSION: Uncomplicated postoperative appearance right total knee arthroplasty.
[2023-04-08] MEDS: LACTATED RINGERS 1,000 ML IV SCH ×2 (10:48→23:52)
[2023-04-08] MEDS: HYDROcodone/APAP 7.5-325MG 1 EACH TAB PO PRN ×2 (14:17→20:18)
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
[2023-04-08] MEDS: HEPARIN SODIUM,PORCINE/PF 5,000 UNIT/0.5 ML SYRINGE SQ SCH (20:16)
[2023-04-08] MEDS: FAMOTIDINE 20 MG TAB PO SCH (20:17)
[2023-04-08] MEDS: lisinopriL 20 MG TAB PO SCH (20:17)
[2023-04-08] MEDS: amLODIPine 5 MG TAB PO SCH (20:17)
[2023-04-08] MEDS: ASPIRIN 81 MG PO SCH (20:17)
[2023-04-08] MEDS: ATORVASTATIN 10 MG TAB PO SCH (20:17)
[2023-04-08] MEDS: SENNOSIDES-DOCUSATE SODIUM 1 EACH TAB PO SCH (20:18)
[2023-04-09] MEDS: HYDROmorphone 0.5 MG/0.5 ML SYRINGE IVP PRN ×2 (00:10→06:02)
[2023-04-09] MEDS: HYDROcodone/APAP 7.5-325MG 1 EACH TAB PO PRN ×2 (03:07→08:14)
[2023-04-09] MEDS: LACTATED RINGERS 1,000 ML IV SCH ×2 (07:10→09:11)
[2023-04-09] MEDS: ASPIRIN 81 MG PO SCH ×2 (08:01→21:09)
[2023-04-09] MEDS: FAMOTIDINE 20 MG TAB PO SCH ×2 (08:02→21:08)
[2023-04-09] MEDS: hydroCHLOROthiazide 12.5 MG CAP PO SCH (08:02)
[2023-04-09] MEDS: HEPARIN SODIUM,PORCINE/PF 5,000 UNIT/0.5 ML SYRINGE SQ SCH ×2 (08:02→21:08)
--- NOTE | 2023-04-09 08:26 | P.PN ---
Progress Note - Text Progress Note Date: 04/09/23 ([id number]) Anesthesiology Postop day 1 status post total knee arthroplasty with adductor canal catheter. Patient doing well. VAS 4 out of 10. Gross strength intact in lower extremity. Afebrile. Denies alterations in sensorium. Catheter site intact. Heart regular rate Lungs nonlabored Abdomen nondistended Assessment: Postop day 1 status post total knee arthroplasty with adductor canal catheter Plan: 1.All questions answered. Maintain catheter 2 more days with patient removal at home. Instructions to be given at discharge. 2.This note was dictated using [employer] software. Please be advised there is a potential for misspellings or errors in publication director.
[2023-04-09 11:11] LABS: Basophils % (A) 0 %; Eosinophils # (A) 0.1 k/uL (0-0.7); Eosinophils % (A) 1 %; HGB 10.3 gm/dL (11.4-16.0); Lymphocytes # (A) 0.8 k/uL (1.0-4.8); Lymphocytes % (A) 9 %; MCH 29.7 pg (25.0-35.0); MCHC 33.1 g/dL (31.0-37.0); MCV 89.8 fL (80.0-100.0); Mean Platelet Volume 7.8; Monocytes # (A) 0.7 k/uL (0-1.0); Monocytes % (A) 8 %; Neutrophils # (A) 7.2 k/uL (1.3-7.7); Neutrophils % (A) 81 %; Platelet Count 262 k/uL (150-450); RBC 3.46 m/uL (3.80-5.40); RDW 13.8 % (11.5-15.5); WBC 8.9 k/uL (3.8-10.6)
[2023-04-09] MEDS ORDERED: MULTIVITAMINS, THERA 1 EACH TAB PO SCH (12:00)
--- NOTE | 2023-04-09 12:07 | P.PN ---
Subjective Progress Note Date: 04/09/23 Patient is a 77-year-old female with PMH of hypertension, dyslipidemia, GERD presenting to [facility] for elective surgery. She underwent right total knee arthroplasty with Dr. Alonso. [facility] has been consulted for medical management of this patient. Patient reports 7-8 out of 10 severity pain in her right knee. She has no other complaints. Urinating freely. Passing gas. Pain worse after working with PT this morning. Of the right jugular line General: non toxic, no distress, appears at stated age Derm: warm, dry Head: atraumatic, normocephalic, symmetric Eyes: EOMI, no lid lag, anicteric sclera Cardiovascular: good distal perfusion in all 4 extremities Lungs: breathing comfortably, no accessory muscle use Ext: no gross muscle atrophy, no edema, no contractures, right knee wrapped dressing clean dry and intact Neuro: no focal neuro deficits Psych: Alert, oriented, appropriate affect Acute blood loss anemia Hypertension Dyslipidemia GERD CBC shows Hg 10.3. Restart amlodipine 5 mg aspirin mouth at bedtime. Restart enalapril 20 mg by mouth at bedtime. Restart hydrochlorothiazide 12.5 mg by mouth every morning. Restart Lipitor 10 mg by mouth at bedtime. Restart Pepcid 40 mg by mouth twice a day. Heparin SQ for DVT prophylaxis. Patient names her daughter decision maker if she can't make decisions for herself. Patient would like to be full code. Objective - Vital Signs Vital signs: Vital Signs Temp 98.1 F 04/09/23 07:39 Pulse 71 04/09/23 07:39 Resp 20 04/09/23 07:39 BP 91/52 04/09/23 07:39 Pulse Ox 95 04/09/23 07:39 FiO2 Intake & Output 04/08/23 04/09/23 04/09/23 18:59 06:59 18:59 Intake Total 1251 Output Total 500 Balance 751 Weight 91.8 kg Intake: IV 1251 Output: Urine 400 Estimated Blood Loss 100 Other: Voiding Method Bedside Commode # Voids 2 3 1 - Labs CBC & Chem 7: 04/09/23 10:43 Labs: Abnormal Lab Results - Last 24 Hours (Table) 04/09/23 Range/Units 10:43 RBC 3.46 L (3.80-5.40) m/uL Hgb 10.3 L (11.4-16.0) gm/dL Hct 31.0 L (34.0-46.0) % Lymphocytes # 0.8 L (1.0-4.8) k/uL
[2023-04-09] MEDS ORDERED: ONDANSETRON 4 MG TAB PO PRN (13:03)
[2023-04-09] MEDS: ONDANSETRON 4 MG/2 ML VIAL IVP PRN ×2 (13:06→21:29)
[2023-04-09] MEDS ORDERED: PROMETHAZINE 25 MG TAB PO PRN (13:10)
[2023-04-09] MEDS ORDERED: HYDROcodone/APAP 10-325MG 1 EACH TAB PO PRN (13:10)
--- NOTE | 2023-04-09 13:19 | P.PN ---
Subjective Progress Note Date: 04/09/23 Principal diagnosis: S/P right TKA Patient is seen at bedside this morning. She is postop day #1 from right total knee arthroplasty. She has pain at the surgical site as expected but denies any new complaints. She denies numbness, tingling or calf pain. Review of systems is negative for fever, chills, chest pain, shortness of breath or other Objective - Vital Signs Vital signs: Vital Signs Temp 98.1 F 04/09/23 07:39 Pulse 71 04/09/23 07:39 Resp 20 04/09/23 07:39 BP 91/52 04/09/23 07:39 Pulse Ox 95 04/09/23 07:39 FiO2 Intake & Output 04/08/23 04/09/23 04/09/23 18:59 06:59 18:59 Intake Total 1251 Output Total 500 Balance 751 Weight 91.8 kg Intake: IV 1251 Output: Urine 400 Estimated Blood Loss 100 Other: Voiding Method Bedside Commode # Voids 2 3 1 - Exam Inspection reveals a benign surgical wound. There is no active bleeding or drainage. Neurovascular status is intact throughout the lower extremity with motor and sensation fully intact. Calf is soft and nontender. 2+ dorsalis pedis pulse and less than 2 second cap refill is present. - Constitutional General appearance: Present: no acute distress - Labs CBC & Chem 7: 04/09/23 10:43 Labs: Abnormal Lab Results - Last 24 Hours (Table) 04/09/23 Range/Units 10:43 RBC 3.46 L (3.80-5.40) m/uL Hgb 10.3 L (11.4-16.0) gm/dL Hct 31.0 L (34.0-46.0) % Lymphocytes # 0.8 L (1.0-4.8) k/uL Assessment and Plan (1) Osteoarthritis of right knee Narrative/Plan: She will continue with routine postop orthopedic protocol including pain management, wound care, PT, DVT prophylaxis and medical management. Expect that he will transfer to home tomorrow Current Visit: Yes Status: Acute Priority: Medium Code(s): M17.11 - UNI LATERAL PRIMARY OSTEOARTHRITIS, RIGHT KNEE SNOMED Code(s): [id number] Time with Patient: Less than 30
[2023-04-09] MEDS: HYDROcodone/APAP 10-325MG 1 EACH TAB PO PRN ×2 (17:05→22:37)
[2023-04-09] MEDS: lisinopriL 20 MG TAB PO SCH (21:08)
[2023-04-09] MEDS: ATORVASTATIN 10 MG TAB PO SCH (21:08)
[2023-04-09] MEDS: SENNOSIDES-DOCUSATE SODIUM 1 EACH TAB PO SCH (21:08)
[2023-04-09] MEDS: amLODIPine 5 MG TAB PO SCH (21:12)
[2023-04-10] MEDS: LACTATED RINGERS 1,000 ML IV SCH (01:34)
[2023-04-10] MEDS: HYDROcodone/APAP 10-325MG 1 EACH TAB PO PRN ×2 (05:15→12:04)
[2023-04-10 07:39] VITALS: BP 113/70; PULSE 79; TEMP 97.9
[2023-04-10] MEDS: FAMOTIDINE 20 MG TAB PO SCH (07:48)
[2023-04-10] MEDS: ASPIRIN 81 MG PO SCH (07:48)
[2023-04-10] MEDS: hydroCHLOROthiazide 12.5 MG CAP PO SCH (07:48)
[2023-04-10] MEDS: HEPARIN SODIUM,PORCINE/PF 5,000 UNIT/0.5 ML SYRINGE SQ SCH (07:49)
--- NOTE | 2023-04-10 09:05 | P.DS ---
Providers Date of admission: 04/09/23 07:03 Expected date of discharge: 04/10/23 Attending physician: Milton Alonso Consults: 04/08/23 09:26 Consult Physician Routine Consulting Provider: Linnette Atkinson Consult Reason/Comments: post op medical management Do you want consulting provider notified?: Yes Primary care physician: Jose Alfredo Ferris - Discharge Diagnosis(es) (1) S/P total knee arthroplasty Current Visit: Yes Status: Acute (2) Osteoarthritis of right knee Current Visit: Yes Status: Acute Priority: Medium Hospital Course: This is a 77-year-old female with known history of degenerative arthritis of the right knee. The patient presented for evaluation as an outpatient. After discussion and consideration patient elects to proceed with total knee arthroplasty. The patient is seen preoperatively by Dr. Alonso and medically cleared for surgery by their primary care physician. Patient is admitted to [facility] on 04/08/2023 for total knee arthroplasty. The procedure is performed without complication or sequelae. The patient is doing well postoperatively. Labs and vital signs are stable on day of discharge. On day of discharge patient's knee incision is healing well. There is minimal erythema. There is no drainage noted at this time. There is minimal soft tissue swelling to the knee. Patient has full foot and ankle motion without difficulty or pain. Calf is soft and nontender to palpation. Neurovascular status to the right lower extremity is intact. Patient is discharged home in good condition. Please see [facility] rec for accurate list of home medications. Plan - Discharge Summary Discharge Rx Participant: No New Discharge Prescriptions: New Aspirin [Adult Low Dose Aspirin EC] 81 mg PO BID #60 tab Docusate [Colace] 100 mg PO BID #60 capsule HYDROcodone/APAP 10-325MG [[place] 10-325] 1 tab PO Q4HR PRN #42 tab PRN Reason: Pain Ondansetron [Zofran] 4 mg PO Q8HR PRN #21 tab PRN Reason: Nausea No Action Cholecalciferol [Vitamin D3] 5,000 unit PO QAM Aspirin [Adult Low Dose Aspirin EC] 81 mg PO HS Enalapril [Vasotec] 20 mg PO HS Krill/Om-3/Dha/Epa/Phospho/Ast [[place]-3 Krill Oil 300 mg Sfgl] 1 each PO HS amLODIPine BESYLATE 5 tab PO HS Albuterol Sulfate [Ventolin HFA] 2 puff INHALATION QID PRN PRN Reason: Shortness Of Breath Famotidine 40 mg PO BID Celecoxib [CeleBREX] 200 tab PO BID PRN PRN Reason: Pain Atorvastatin Calcium [Lipitor] 10 mg PO HS hydroCHLOROthiazide 12.5 tab PO QAM Zinc 50 mg PO QAM Cranberry Conc/Ascorbic Acid [Cranberry Conc-Vitamin C Cap] 1 cap PO DAILY Ascorbic Acid [Vitamin C] 500 mg PO QAM Magnesium 400 mg PO QAM Acetaminophen Tab [Tylenol] 650 mg PO Q6H #30 tab Discharge Medication List Aspirin [Adult Low Dose Aspirin EC] 81 mg PO HS 07/13/16 [History] Cholecalciferol [Vitamin D3] 5,000 unit PO QAM 07/13/16 [History] Enalapril [Vasotec] 20 mg PO HS 07/13/16 [History] Krill/Om-3/Dha/Epa/Phospho/Ast [[place]-3 Krill Oil 300 mg Sfgl] 1 each PO HS 07/13/16 [History] Atorvastatin Calcium [Lipitor] 10 mg PO HS 09/16/21 [History] Celecoxib [CeleBREX] 200 tab PO BID PRN 09/16/21 [History] amLODIPine BESYLATE 5 tab PO HS 09/16/21 [History] hydroCHLOROthiazide 12.5 tab PO QAM 09/16/21 [History] Albuterol Sulfate [Ventolin HFA] 2 puff INHALATION QID PRN 04/17/22 [History] Cranberry Conc/Ascorbic Acid [Cranberry Conc-Vitamin C Cap] 1 cap PO DAILY 04/17/22 [History] Famotidine 40 mg PO BID 04/17/22 [History] Zinc 50 mg PO QAM 04/17/22 [History] Ascorbic Acid [Vitamin C] 500 mg PO QAM 03/02/23 [History] Magnesium 400 mg PO QAM 03/02/23 [History] Acetaminophen Tab [Tylenol] 650 mg PO Q6H #30 tab 03/08/23 [Rx] Aspirin [Adult Low Dose Aspirin EC] 81 mg PO BID #60 tab 04/09/23 [Rx] Docusate [Colace] 100 mg PO BID #60 capsule 04/09/23 [Rx] HYDROcodone/APAP 10-325MG [[place] 10-325] 1 tab PO Q4HR PRN #42 tab 04/09/23 [Rx] Ondansetron [Zofran] 4 mg PO Q8HR PRN #21 tab 04/09/23 [Rx] Follow up Appointment(s)/Referral(s): [facility] [NON-STAFF] - 1-2 Days Milton Alonso MD [STAFF PHYSICIAN] - 10 Days Activity/Diet/Wound Care/Special Instructions: Weight bear as tolerated May shower after 3 days if no bleeding Keep wound clean and dry Take meds as directed F/U with Dr. Alonso in office Discharge Disposition: HOME WITH HOME HEALTH SERVICES
[2023-04-10 09:34] VITALS: RESP 16
[2023-04-10] MEDS: ONDANSETRON 4 MG/2 ML VIAL IVP PRN (09:36)
== END 2023-04-10 12:28 | disposition home health service (06) ==
LOC: OR 05:33 → 4SSUR 13:23 → OR 04-09 07:03 → 4SSUR 04-09 07:03
PROVIDERS: ADMIT Orthopaedic Surgery Sports Medicine; ATTEND Orthopaedic Surgery Sports Medicine
DX: M17.11 Unilateral primary osteoarthritis, right knee (principal); D62 Acute posthemorrhagic anemia; M21.061 Valgus deformity, not elsewhere classified, right knee; I10 Essential (primary) hypertension; G47.33 Obstructive sleep apnea (adult) (pediatric); J44.9 Chronic obstructive pulmonary disease, unspecified; I35.8 Other nonrheumatic aortic valve disorders; K21.9 Gastro-esophageal reflux disease without esophagitis; E78.5 Hyperlipidemia, unspecified; M51.36 Other intervertebral disc degeneration, lumbar region; M16.0 Bilateral primary osteoarthritis of hip; M19.072 Primary osteoarthritis, left ankle and foot; M19.071 Primary osteoarthritis, right ankle and foot; H40.9 Unspecified glaucoma; F32.A Depression, unspecified; Z79.82 Long term (current) use of aspirin; Z79.899 Other long term (current) drug therapy; Z88.0 Allergy status to penicillin; Z98.84 Bariatric surgery status; Z90.710 Acquired absence of both cervix and uterus; Z87.828 Personal history of other (healed) physical injury and trauma; Z87.891 Personal history of nicotine dependence; Z82.49 Family history of ischemic heart disease and other diseases of the circulatory system; Z80.8 Family history of malignant neoplasm of other organs or systems; Z80.3 Family history of malignant neoplasm of breast
CPT/HCPCS: 97116; 97162; 64999; 64448; 85025; 73560; 27447; G0378 ×2; C1776; C1713; C1751; J2250; J1100; J0690 ×2; J2405 ×3; J3010; J2795; J2370; J2704; J1170 ×2; J1644 ×3

== ENCOUNTER → 2023-06-07 | Outpatient (CLI) | payer MEDICARE ==
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
[2023-06-07 13:34] VITALS: BP 127/77; PULSE 69; TEMP 97.6; BMI 33.5
== END ==
LOC: BARWHC3 13:18
PROVIDERS: ATTEND Surgery
DX: E66.01 Morbid (severe) obesity due to excess calories (principal); J44.9 Chronic obstructive pulmonary disease, unspecified; K21.9 Gastro-esophageal reflux disease without esophagitis; E78.5 Hyperlipidemia, unspecified; I10 Essential (primary) hypertension; M19.90 Unspecified osteoarthritis, unspecified site; Z87.891 Personal history of nicotine dependence; Z88.0 Allergy status to penicillin; Z79.82 Long term (current) use of aspirin; Z98.84 Bariatric surgery status; Z68.33 Body mass index [BMI] 33.0-33.9, adult
CPT/HCPCS: 99211

== ENCOUNTER → 2023-08-09 | Outpatient (CLI) | payer MEDICARE ==
[2023-08-09 11:02] VITALS: BP 167/78; PULSE 61; TEMP 97.7; BMI 33.3
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
== END ==
LOC: BARWHC3 09:32
PROVIDERS: ATTEND Surgery
DX: K21.9 Gastro-esophageal reflux disease without esophagitis (principal); E66.01 Morbid (severe) obesity due to excess calories; J44.9 Chronic obstructive pulmonary disease, unspecified; E78.5 Hyperlipidemia, unspecified; I10 Essential (primary) hypertension; M16.0 Bilateral primary osteoarthritis of hip; M19.071 Primary osteoarthritis, right ankle and foot; M19.072 Primary osteoarthritis, left ankle and foot; M51.36 Other intervertebral disc degeneration, lumbar region; Z98.84 Bariatric surgery status; Z87.891 Personal history of nicotine dependence; Z68.33 Body mass index [BMI] 33.0-33.9, adult; Z88.0 Allergy status to penicillin; Z79.899 Other long term (current) drug therapy; Z79.82 Long term (current) use of aspirin
CPT/HCPCS: 99211

== ENCOUNTER → 2023-08-24 | Outpatient (CLI) | payer MEDICARE ==
--- NOTE | 2023-08-25 08:59 | MM ---
Reason for Exam: Screening (asymptomatic). Last mammogram was performed 3 year(s) and 8 month(s) ago. Patient History: Menarche at age 9. First Full-Term at age 27. Postmenopausal. Hormonal Contraceptives for 15 years from age 20 until age 34. 07/08/1999, Benign Stereotactic Core Biopsy on the left side. Sister had breast cancer, age 45. Risk Values: Indigo 5 year model risk: 4.3%. NCI Lifetime model risk: 7.1%. Prior Study Comparison: 11/11/2015 Right Diagnostic Mammogram, MERGED WITH [facility]. 04/15/2018 Bilateral Screening Mammogram, MERGED WITH [facility]. 12/22/2019 Bilateral Screening Mammogram, MERGED WITH [facility]. Tissue Density: The breast tissue is almost entirely fat. Findings: Analyzed By CAD. There is no suspicious group of microcalcifications or new suspicious mass in either breast. Overall Assessment: Negative, BI-RAD 1 Management: Screening Mammogram of both breasts in 1 year. . Patient should continue monthly self-breast exams. A clinical breast exam by your physician is recommended on an annual basis. This exam should not preclude additional follow-up of suspicious palpable abnormalities. Note on Indigo scores and lifetime risk: 1. A Indigo score greater than 3% is considered moderate risk. If this is the case, consider specialist referral to assess eligibility for a risk reducing agent. 2. If overall lifetime risk for the development of breast cancer is 20% or higher, the patient may qualify for future screening with alternating mammogram and breast MRI. Electronically signed and approved by: Andrew Glass M.D. Radiologis
== END | disposition home or self-care (01) ==
LOC: RADMAMWWP 13:18
PROVIDERS: ATTEND Family Medicine
DX: Z12.31 Encounter for screening mammogram for malignant neoplasm of breast (principal); Z78.0 Asymptomatic menopausal state; Z80.3 Family history of malignant neoplasm of breast
CPT/HCPCS: 77063; 77067

== ENCOUNTER → 2023-11-08 | Outpatient (CLI) | payer MEDICARE ==
[2023-11-08 09:57] VITALS: BP 136/77; PULSE 80; TEMP 98.2; BMI 34.0
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
== END ==
LOC: BARWHC3 09:27
PROVIDERS: ATTEND Surgery
DX: K21.9 Gastro-esophageal reflux disease without esophagitis (principal); J44.9 Chronic obstructive pulmonary disease, unspecified; E78.5 Hyperlipidemia, unspecified; I10 Essential (primary) hypertension; M16.0 Bilateral primary osteoarthritis of hip; M19.071 Primary osteoarthritis, right ankle and foot; M19.072 Primary osteoarthritis, left ankle and foot; M51.36 Other intervertebral disc degeneration, lumbar region; Z98.84 Bariatric surgery status; Z87.891 Personal history of nicotine dependence; Z88.0 Allergy status to penicillin; Z79.82 Long term (current) use of aspirin; Z79.899 Other long term (current) drug therapy
CPT/HCPCS: 99211

== ENCOUNTER → 2024-02-07 | Outpatient (CLI) | payer MEDICARE ==
[2024-02-07 14:27] VITALS: BP 130/71; PULSE 78; TEMP 98; BMI 35.7
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
== END ==
LOC: BARWHC3 09:22
PROVIDERS: ATTEND Surgery
DX: K21.9 Gastro-esophageal reflux disease without esophagitis (principal); Z87.891 Personal history of nicotine dependence; Z98.84 Bariatric surgery status; Z88.0 Allergy status to penicillin
CPT/HCPCS: 99211

== ENCOUNTER 2024-10-18 19:44 | Outpatient (CLI) | payer MEDICARE ==
--- NOTE | 2024-11-14 05:32 | P.PCN ---
Date of Procedure: 10/18/24 Operative Findings: CPAP titration report Date of service is 10/18/2024 History 79-year-old female patient, known history of obstructive sleep apnea who is being treated with CPAP therapy. The patient has been compliant with the treatment. Nevertheless, there was some ongoing concerns regarding the efficacy of the treatment and ability of the CPAP to maintain an oxygen saturation and above 90% while being on therapy. Based on that, CPAP titration was ordered. Comorbidities include hypertension and hyperlipidemia and osteoporosis. Pertinent physical findings The patient has a weight of 211 pounds with a body mass index of 36.2 Technical description The patient was studied using a standard complex polysomnography protocol that included recording of the Lead II EKG, Central, occipital and frontal EEG, right and left outer canthus EOG, submental EMG, right and left anterior tibialis EMG, respiratory airflow by thermocouple and or pressure/flow transducer, respiratory efforts by abdominal and thoracic PVDF belts, oxygen saturation by cable oximetry. Position by observation synchronized the PSG. Equipment used: [employer]. Stepwise CPAP titration was done to eliminate all obstructive respiratory events Sleep architecture Total recording duration was 400 minutes. The total sleep time was 203 minutes. The wake after sleep onset time was 155 minutes. Overall sleep efficiency was 50.8%. Latency to sleep onset was 45.5 minutes. Latency to REM sleep was 209.5 minutes. The sleep architecture was characterized by 12.1% stage I, 76.8% stage II, 0% stage III, and a total of 11.1% REM sleep. The total arousal index was 8.9. Respiratory analysis The patient was started on CPAP therapy at a pressure of 5 cm of water pressure was gradually increased by increments of 1 cm to reach a maximum CPAP pressure of 12 cm of water. Carefully reviewed the CPAP titration taken, the patient sleep stage and body position. Essentially, the various pressures utilized were effective in elevating obstructive respiratory events. No significant apneas or hypopneas or nocturnal oxygen desaturations were encountered. The patient was able to maintain oxygen saturation above 90% and the patient spent only 1.2 minutes of sleep time below pulse ox of 89%. As such, this was a successful titration. No significant desaturations encountered. Periodic limb movement summary There was a total of 5 periodic limb movement activity with arousals with an index of 1.5 Arousal events A total of 30 arousals encountered throughout the sleep study with an index of 8.9. The respiratory arousal index was 0 Cardiac summary Average heart rate was 61 with a minimum heart rate of 59 and a maximum heart of 65 Assessment Obstructive sleep apnea with a successful CPAP titration Plan Continue CPAP therapy. Based on the current CPAP titration, pressures of 7 through 12 cm of water with effective in eliminating the patient's obstructive respiratory events. Would like to check the patient CPAP unit and adjust the pressures accordingly. No need for O2 supplementation and CPAP therapy alone is enough to maintain oxygen saturation above 90%. Utilize mask of choice. The patient was fitted with a medium size AirFit P10 nasal pillows. The same mask can be also utilized on outpatient basis. Follow-up in the office. Continue CPAP therapy.
== END 2024-10-19 05:40 | disposition home or self-care (01) ==
LOC: 3 N SLEEP 19:44
PROVIDERS: ATTEND Internal Medicine Critical Care Medicine
DX: G47.33 Obstructive sleep apnea (adult) (pediatric) (principal); Z88.0 Allergy status to penicillin; Z87.891 Personal history of nicotine dependence
CPT/HCPCS: 95811

== ENCOUNTER → 2025-01-22 | Outpatient (CLI) | payer MEDICARE ==
[2025-01-22 15:16] LABS: Influenza A Not Detected (Not Detectd); Influenza B Not Detected (Not Detectd); RSV Not Detected (Not Detectd)
== END | disposition home or self-care (01) ==
LOC: LABWHC1 13:42
PROVIDERS: ATTEND Internal Medicine
DX: Z20.822 Contact with and (suspected) exposure to COVID-19 (principal); J06.9 Acute upper respiratory infection, unspecified
CPT/HCPCS: 87636